=== PATIENT | male | born 1990 | race Two or more races ===

== ENCOUNTER 2017-09-20 17:17 | Emergency (ER) | payer BC, OTHER ==
[~2017-09-20] VITALS: Ht 177.8 cm; Wt 59.5 kg
[~2017-09-20 17:17] MED LIST: AZIT250T PO; HYDR-882 PO; KETO10TA PO; OMEP20TA9 PO; TRAM-47 PO; ZOLP10TA PO
[2017-09-20 18:10] LABS: BASOPHILS # (AUTO) 0.03 x10^3/uL (0-0.1); BASOPHILS % (AUTO) 0 % (0-1); EOSINOPHILS % (AUTO) 1 % (1-7); LYMPHOCYTES # (AUTO) 1.65 x10^3/uL (1-3.4); LYMPHOCYTES % (AUTO) 22 % (22-44); MD NO; MEAN CORPUSCULAR HEMOGLOBIN 30.9 pg (27.5-34.5); MEAN CORPUSCULAR HGB CONC 34.5 g/dL (33.2-36.2); MEAN CORPUSCULAR VOLUME 89.5 fL (81-97); MEAN PLATELET VOLUME 10.4 fL (7.4-10.4); MONOCYTES # (AUTO) 0.68 x10^3/uL (0.2-0.8); MONOCYTES % (AUTO) 9 % (2-9); NEUTROPHILS # (AUTO) 5.09 x10^3/uL (1.8-6.8); NEUTROPHILS % (AUTO) 67 % (42-75); PLATELET COUNT 170 x10^3/uL (130-400); RED BLOOD COUNT 5.29 x10^6/uL (4.38-5.82); RED CELL DISTRIBUTION WIDTH 13.4 % (9.4-14.8)
[2017-09-20 18:15] LABS: ALBUMIN 4.4 g/dL (3.4-5.0); ANION GAP 11 mmol/L (5-15); CALCIUM 8.8 mg/dL (8.5-10.1); CHLORIDE 109 mmol/L (98-107)
[2017-09-20 19:41] LABS: ALANINE AMINOTRANSFERASE 32 U/L (12-78); CREATININE 1.41 mg/dL (0.7-1.3)
[2017-09-20 19:42] LABS: ALKALINE PHOSPHATASE 84 U/L (45-117); BILIRUBIN,TOTAL 0.6 mg/dL (0.2-1.0); TOTAL PROTEIN 8.3 g/dL (6.4-8.2)
[2017-09-20 19:55] LABS: MICROSCOPIC NOT IND
[2017-09-20 20:05] LABS: CULTURE INDICATED? NO
[2017-09-20] MEDS ORDERED: ONDANSETRON 2MG/ML, 2ML IVPush ONE (21:00)
[2017-09-20] MEDS ORDERED: SODIUM CHLORIDE 0.9% 1,000ML IVBOLUS ONE (21:00)
[2017-09-20] MEDS ORDERED: SODIUM CHLORIDE FLUSH 10ML SYR IVF ONE (21:00)
[2017-09-20] MEDS ORDERED: OMNIPAQUE 350 MG/ML, 100ML BOTTLE ONE (21:43)
[2017-09-20 22:57] VITALS: BP 100/59
== END 2017-09-20 23:37 | disposition home or self-care (01) ==
LOC: ED 23:05
DX: R10.84 Generalized abdominal pain (principal); R79.89 Other specified abnormal findings of blood chemistry; F90.9 Attention-deficit hyperactivity disorder, unspecified type
CPT/HCPCS: 36415; 74022; 74177; 80053; 81003; 83690; 85025; 96374; 99285; J2405; J7030; Q9967; 96361

== ENCOUNTER 2019-12-23 23:39 | Emergency (ER) | payer SELFPAY ==
[~2019-12-23] VITALS: Ht 175.3 cm; Wt 60.3 kg
[~2019-12-23 23:39] MED LIST changes: +HYDR-3653 PO; -HYDR-882 PO
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
[2019-12-24] MEDS ORDERED: KETOROLAC 30 MG/1 ML ONE (00:10)
[2019-12-24] MEDS ORDERED: ONDANSETRON ODT 4 MG ONE (00:10)
[2019-12-24] MEDS ORDERED: MORPHINE SULFATE 4 MG/ML, 1ML ONE ×2 (00:10→01:43)
[2019-12-24] MEDS ORDERED: TRANEXAMIC ACID 100 MG/ML, 10ML ONE (00:11)
[2019-12-24] MEDS ORDERED: TRANEXAMIC ACID 100 MG/ML, 10ML TP ONE (00:30)
[2019-12-24] MEDS ORDERED: KETOROLAC 30 MG/1 ML IM ONE (00:30)
[2019-12-24] MEDS ORDERED: ONDANSETRON ODT 4 MG PO ONE (00:30)
[2019-12-24] MEDS ORDERED: MORPHINE SULFATE 4 MG/ML, 1ML IVPush ONE ×2 (00:30→01:30)
--- NOTE | 2019-12-24 00:33 | NUR ---
Admin meds per apr. Applied TXA to wounds and assisted tech to bandage area.
[2019-12-24 01:49] VITALS: BP 105/65
[2019-12-24] MEDS ORDERED: NEOSPORIN OINT. PKT 1 PACKET ONE (02:02)
--- NOTE | 2019-12-24 02:28 | NUR ---
D/c instructions given. All questions and concerns addressed. Patient ambulatory with a steady gait. Belongings with patient.
== END 2019-12-24 02:29 | disposition home or self-care (01) ==
LOC: ED 12-24 00:57
DX: S52.691B Other fracture of lower end of right ulna, initial encounter for open fracture type I or II (principal); S20.319A Abrasion of unspecified front wall of thorax, initial encounter; X93.XXXA Assault by handgun discharge, initial encounter; Y93.89 Activity, other specified; Y92.830 Public park as the place of occurrence of the external cause; Y99.8 Other external cause status
CPT/HCPCS: 29125; 96372; 96374; 96376; 99284; J1885; J2270; Q0162